=== PATIENT | male | born 1975 | race Caucasian/White ===

== ENCOUNTER 2022-10-31 05:58 | Day surgery (SDC) | payer BC ==
[2022-10-31] MEDS ORDERED: Lactated Ringers 1,000 ML IV ONE (06:23)
[2022-10-31] MEDS ORDERED: Lactated Ringers 1,000 ML IV SCH (06:30)
[2022-10-31] MEDS ORDERED: DIPRIVAN 200 MG/20 ML IV ONE ×2 (07:19→07:31)
[2022-10-31] MEDS ORDERED: Xylocaine-Mpf 2% 5 Ml Vial ONE (07:19)
[2022-10-31] MEDS ORDERED: ATROPINE SULFATE 1MG ONE (07:22)
[2022-10-31 08:20] VITALS: PULSE 51; O2SAT 96
[2022-10-31 08:28] VITALS: BP 141/96
--- NOTE | 2022-10-31 08:46 | OP ---
SURGERY DATE/TIME: 10/31/2022 0724 PREOPERATIVE DIAGNOSIS: Screening exam. POSTOPERATIVE DIAGNOSIS: Sigmoid diverticulosis otherwise normal colon. PROCEDURE: Colonoscopy. SURGEON: Dr. Ortiz. ANESTHESIA: MAC. Medications given by anesthesia department. HISTORY: The patient is a 47-year-old white male patient presenting now for colonoscopic evaluation. He was appraised of the risks of the procedure including the risk of perforation, phlebitis, untoward reaction to medication, bleeding and missed lesions. The patient verbalized his understanding and desired to have the procedure performed. DESCRIPTION OF PROCEDURE: The patient was given the medications by the anesthesia department. He had continuous pulse oximetry, ECG monitoring and intermittent blood pressure monitoring during the examination. He was placed in the left lateral decubitus position. A digital rectal examination was performed and revealed normal anal sphincter tone and no masses. The flexible Olympus pediatric colonoscope was used to intubate the rectum. A view of the colon was developed sequentially to the cecum. Upon insertion and withdrawal was noted moderate sigmoid diverticulosis but no other mucosal lesions. The scope was removed from the patient who tolerated the procedure well and sent back to OP recovery in good condition. The prep was noted to be fair to good.
== END 2022-10-31 08:33 | disposition home or self-care (01) ==
LOC: SDC 05:58
PROVIDERS: ATTEND Family Medicine
DX: Z12.11 Encounter for screening for malignant neoplasm of colon (principal); K57.30 Diverticulosis of large intestine without perforation or abscess without bleeding
CPT/HCPCS: J0461; J2704